=== PATIENT | male | born 1950 | race Caucasian/White ===

== ENCOUNTER 2016-09-27 21:15 | Inpatient (IN) | payer MEDICARE ==
[~2016-09-27] VITALS: Ht 179.1 cm; Wt 82.1 kg
--- NOTE | 2016-09-27 21:15 | NUR ---
66 YO MALE BB SELF. PT IS ALERT X 3, C/O GENERALIZED MALAISE ALL DAY. PT DENIES CP, N/V/DIARRHEA. PT AMBULATED TO ER BED 6 WITH SETADY GAIT, SKIN WARM AND DRY, RR EVEN AND UNLABORED. PT IS MOVING ALL EXTREMITIES FREELY, NO DEFICITS NOTED. PT GOWNED,PLACED ON DESIGN EDITOR. AWAITING ORDERS FROM PROVIDER, WILL CONITNUE TO MONITOR
--- NOTE | 2016-09-27 21:25 | NUR ---
18G RIGHT AC IV STARTED, BLOOD SAMPLE OBTAINED AND SENT TO LAB.
--- NOTE | 2016-09-27 21:30 | NUR ---
URINE SAMPLE OBTAINED AND SENT TO LAB
[2016-09-27] MEDS ORDERED: IV NS 0.9% 1,000 ML ONE (21:49)
[2016-09-27] MEDS ORDERED: IV SET PRIMARY 1 EA INFUS.SET MC ONE (21:49)
--- NOTE | 2016-09-27 22:00 | NUR ---
pt transported to ct via gurney by radiology team
[2016-09-27 22:02] LABS: BASOPHILS % (AUTO) 0.2 % (0.0-2.0); EOSINOPHILS % (AUTO) 0.1 % (0.0-6.0); HEMATOCRIT 45 % (39-51); HEMOGLOBIN 14.6 g/dL (13.5-17.5); LYMPHOCYTES # (AUTO) 1.4 /CMM (0.8-4.8); LYMPHOCYTES % (AUTO) 12.3 % (20.0-44.0); MEAN CORPUSCULAR HEMOGLOBIN 29 PG (26.0-33.0); MEAN CORPUSCULAR HGB CONC 32 g/dl (31.0-36.0); MEAN CORPUSCULAR VOLUME 89 fL (80-96); MONOCYTES # (AUTO) 0.5 /CMM (0.1-1.30); MONOCYTES % (AUTO) 4.2 % (2.0-12.0); NEUTROPHILS # (AUTO) 9.4 /CMM (1.8-8.9); NEUTROPHILS % (AUTO) 83.2 % (43.0-81.0); PLATELET COUNT (AUTO) 251 /CMM (150-450); RDW COEFFICIENT OF VARIATION 13.5 (11.5-15.0); RED BLOOD CELL COUNT(AUTO) 5.07 MIL/uL (4.5-6.0); WHITE BLOOD COUNT (AUTO) 11.3 K/uL (4.3-11.0)
[2016-09-27 22:11] LABS: CALCIUM, SERUM 8.5 mg/dL (8.5-10.1); CREATININE 0.7 mg/dL (0.6-1.3); POTASSIUM 3.8 mmol/L (3.5-5.1)
[2016-09-27 22:22] LABS: TROPONIN I 0.055 ng/mL (0.00-0.056)
[2016-09-27 22:23] LABS: PROTHROMBIN TIME 10.7 SECS (9.5-12.7)
[2016-09-28] VITALS (10 sets, daily range): BP systolic 106–147; BP diastolic 59–77
--- NOTE | 2016-09-28 00:01 | NUR ---
pt resting in er bed, nad noted, pt is on cardiac surgeon. will continue to monitor
--- NOTE | 2016-09-28 00:35 | NUR ---
report given to rn for tanner
--- NOTE | 2016-09-28 00:45 | NUR ---
RN OPEN NOTES RECEIVED PATIENT FROM ER VIA VERO WITH FRIEND AT BEDSIDE. A/O X4. NO SIGNS OF DISTRESS OR DISCOMFORT. BREATHING EVEN AND UNLABORED. IV ACCESS IN RAC, PATENT AND INTACT, NO SIGNS OF REDNESS OR INFILTRATION. ORIENTED PATIENT TO ROOM AND UNIT. ATTACHED TELE MONITORING WITH SR 70 NOTED. BED IN LOW LOCKED POSITION WITH SIDE RAILS X2. CALL LIGHT WITHIN REACH. WILL CONTINUE TO MONITOR.
[2016-09-28] MEDS ORDERED: IV NS 0.9% 1,000 ML IV PRN (01:15)
[2016-09-28] MEDS ORDERED: MAGNESIUM HYDROXIDE 30 ML UDC PO PRN (01:30)
[2016-09-28] MEDS ORDERED: CLONIDINE HCL 0.1 MG TABLET PO PRN (01:30)
[2016-09-28] MEDS ORDERED: ENOXAPARIN SODIUM 40 MG/0.4 ML DISP.SYRIN SQ SCH ×2 (01:30→21:00)
[2016-09-28] MEDS ORDERED: MAG HYDROX/AL HYDROX/SIMETH 30 ML UDC PO PRN (01:30)
[2016-09-28] MEDS ORDERED: ONDANSETRON HCL/PF 4 MG/2 ML VIAL IVP PRN (01:30)
[2016-09-28] MEDS ORDERED: ZOLPIDEM TARTRATE 5 MG TABLET PO PRN ×2 (01:30→21:00)
[2016-09-28] MEDS ORDERED: ENOXAPARIN SODIUM 40 MG/0.4 ML DISP.SYRIN SQ ONE (01:39)
[2016-09-28] MEDS ORDERED: IV NS 0.9% 1,000 ML ONE (01:50)
[2016-09-28] MEDS ORDERED: IV SET PRIMARY PUMP SET 1 EA INFUS.SET MC ONE (01:50)
[2016-09-28] MEDS ORDERED: ASPIRIN 81 MG TAB.CHEW PO SCH ×2 (03:00→09:00)
[2016-09-28] MEDS ORDERED: ASPIRIN 325 MG TABLET ONE (03:12)
--- NOTE | 2016-09-28 06:56 | NUR ---
RN CLOSING NOTES PATIENT AWAKE IN BED. A/O X4. NO SIGNS OF DISTRESS OR DISCOMFORT. BREATHING EVEN AND UNLABORED. IV ACCESS IN RAC, PATENT AND INTACT, NO SIGNS OF REDNESS OR INFILTRATION. ON TELE MONITORING WITH SB 59 NOTED. NO SIGNIFICANT CHANGES THROUGH THE NIGHT. ALL NEEDS MET. BED IN LOW LOCKED POSITION WITH SIDE RAILS X2. CALL LIGHT WITHIN REACH. WILL ENDORSE TO AM SHIFT FOR BRENDA.
--- NOTE | 2016-09-28 07:40 | NUR ---
CLIP WRAPPER OPENING NOTES RECEIVED PATIENT IN BED, AWAKE, HEAD OF BED ELEVATED, NO SOB, OR DISTRESS NOTED. . ON TELE MONITOR SINUS MEÑO HEART RATE OF 59. PATIENT ALERTED AND ORIENTED TIMES 4. VERBALLY RESPONSIVE AND ABLE TO LET US KNOW HIS NEEDS. IV INTACT AND PATENT. BED IS LOCKED ON THE LOWEST POSITION, CALL LIGHT WITHIN PATIENT REACH. SKIN IS INTACT. KEPT PATIENT CLEAN AND COMFORTABLE. WILL CONTINUE TO MONITOR ACCORDINGLY.
[2016-09-28 07:59] LABS: THYROID STIMULATING HORMONE 1.488 uIU/mL (0.358-3.74)
[2016-09-28 08:03] LABS: PHOSPHORUS 3.2 mg/dL (2.5-4.9)
[2016-09-28] MEDS: PANTOPRAZOLE 40 MG TABLET.DR PO SCH (08:47)
[2016-09-28] MEDS: LISINOPRIL (5MG) 5 MG TABLET PO SCH (08:47)
--- NOTE | 2016-09-28 12:03 | NUR ---
KNIFE EDGER NOTES DOCTOR AMEYA CAME SEEING AND EXAMINED THE PATIENT AND SHE ORDERED AMBIEN 5MG 1 TAB PO HS PRN. ALL ORDERS CARRIED OUT AND NOTED.
--- NOTE | 2016-09-28 12:04 | NUR ---
senior telecommunications specialist notes Dr. Cabrera came seen and examined the patient and ordered duplex carotid imaging. All orders carried out and noted. Will continue to monitor accordingly.
[2016-09-28] MEDS: ACETAMINOPHEN 325 MG TABLET PO PRN ×2 (19:14→19:53)
--- NOTE | 2016-09-28 19:15 | NUR ---
RN OPEN NOTES RECEIVED PATIENT AWAKE IN BED WITH FRIEND AT BEDSIDE. A/O X4. NO SIGNS OF DISTRESS OR DISCOMFORT. BREATHING EVEN AND UNLABORED. IV ACCESS IN RAC WITH NS INFUSING, PATENT AND INTACT, NO SIGNS OF REDNESS OR INFILTRATION. BED IN LOW LOCKED POSITION WITH SIDE RAILS X2. CALL LIGHT WITHIN REACH. WILL CONTINUE TO MONITOR.
--- NOTE | 2016-09-28 19:19 | NUR ---
MS RN CLOSING NOTES All needs provided, attended, and anticipated. Kept patient clean and comfortable in bed, call light within patient reach, will continue to monitor accordingly. Patient endorsed to next shift RN to continue care.
[2016-09-28 19:37] LABS: CANNABINOID, URINE NEGATIVE (NEGATIVE); PHENCYCLIDINE SCREEN,URINE NEGATIVE (NEGATIVE)
[2016-09-28 19:40] LABS: APPEARANCE,URINE CLEAR (CLEAR); BILIRUBIN,URINE NEGATIVE (NEGATIVE); BLOOD, URINE NEGATIVE Ery/uL (NEGATIVE); COLOR,URINE YELLOW (YELLOW); KETONES,URINE NEGATIVE (NEGATIVE); LEUKOCYTE ESTERASE ,URINE NEGATIVE (NEGATIVE); NITRITE, URINE NEGATIVE (NEGATIVE); PROTEIN,URINE NEGATIVE (NEGATIVE); UGLUCOSE NEGATIVE (NEGATIVE); UROBILINOGEN,URINE 0.2 EU/dL (0.2)
--- NOTE | 2016-09-28 20:00 | NUR ---
RN NOTES ADMINISTERED TYLENOL 650 MG FOR HEADACHE. WILL CONTINUE TO MONITOR.
--- NOTE | 2016-09-28 21:05 | NUR ---
RN NOTES ADMINISTERED AMBIEN 5MG PO ORDERED BY PATIENT REQUEST FOR INSOMNIA. WILL CONTINUE TO MONITOR.
--- NOTE | 2016-09-28 21:10 | NUR ---
RN NOTES PATIENT REFUSING IV FLUIDSX3. STATES HE IS DRINKING ENOUGH FLUIDS AND DOES NOT NEED THE IV FLUIDS. PATIENT EDUCATION REINFORCED. WILL CONTINUE TO MONITOR.
[2016-09-28] MEDS ORDERED: ATORVASTATIN 10 MG TABLET PO SCH (22:00)
[2016-09-28] MEDS ORDERED: SIMVASTATIN 20 MG TABLET PO SCH (22:00)
[2016-09-29 06:27] LABS: BASOPHILS % (AUTO) 0.2 % (0.0-2.0); EOSINOPHILS # (AUTO) 0.1 /CMM (0.0-0.7); EOSINOPHILS % (AUTO) 1.4 % (0.0-6.0); HEMATOCRIT 41 % (39-51); HEMOGLOBIN 13.4 g/dL (13.5-17.5); LYMPHOCYTES # (AUTO) 2.5 /CMM (0.8-4.8); LYMPHOCYTES % (AUTO) 39.9 % (20.0-44.0); MEAN CORPUSCULAR HEMOGLOBIN 30 PG (26.0-33.0); MEAN CORPUSCULAR HGB CONC 33 g/dl (31.0-36.0); MEAN CORPUSCULAR VOLUME 90 fL (80-96); MONOCYTES # (AUTO) 0.6 /CMM (0.1-1.30); MONOCYTES % (AUTO) 10.1 % (2.0-12.0); NEUTROPHILS # (AUTO) 3.1 /CMM (1.8-8.9); NEUTROPHILS % (AUTO) 48.4 % (43.0-81.0); PLATELET COUNT (AUTO) 207 /CMM (150-450); RDW COEFFICIENT OF VARIATION 13.5 (11.5-15.0); RED BLOOD CELL COUNT(AUTO) 4.51 MIL/uL (4.5-6.0); WHITE BLOOD COUNT (AUTO) 6.3 K/uL (4.3-11.0)
[2016-09-29 06:40] LABS: CALCIUM, SERUM 8.3 mg/dL (8.5-10.1); CREATININE 0.8 mg/dL (0.6-1.3); MAGNESIUM 2.2 mg/dL (1.8-2.4); PHOSPHORUS 3.7 mg/dL (2.5-4.9); POTASSIUM 3.8 mmol/L (3.5-5.1)
--- NOTE | 2016-09-29 06:55 | NUR ---
RN CLOSING NOTES PATIENT AWAKE IN BED. A/O X4. NO SIGNS OF DISTRESS OR DISCOMFORT. BREATHING EVEN AND UNLABORED. IV ACCESS IN RAC WITH NS INFUSING, PATENT AND INTACT, NO SIGNS OF REDNESS OR INFILTRATION. ALL NEEDS MET. NO SIGNIFICANT CHANGES THROUGH THE NIGHT. BED IN LOW LOCKED POSITION WITH SIDE RAILS X2. CALL LIGHT WITHIN REACH. WILL ENDORSE TO AM SHIFT FOR BRENDA.
--- NOTE | 2016-09-29 07:28 | NUR ---
IV IN RAC S/L-PATIENT REFUSED IV FLUIDS.
--- NOTE | 2016-09-29 07:30 | NUR ---
RN MS OPENING NOTES Received patient in bed, awake, head of bed elevated, no SOB or distress noted. A/O X 4, verbally responsive and able to make needs known. Patient has a headache 0/4 pain scale. IV is intact and patent without infiltration. Kept patient clean and comfortable in bed, call light within patient reach, will continue to monitor accordingly.
[2016-09-29 08:00] VITALS: BP_SYST 118; BP_SYST 145; BP_DIAS 70; BP_DIAS 90
[2016-09-29] MEDS: PANTOPRAZOLE 40 MG TABLET.DR PO SCH (08:14)
[2016-09-29] MEDS: ACETAMINOPHEN 325 MG TABLET PO PRN (08:15)
[2016-09-29] MEDS: LISINOPRIL (5MG) 5 MG TABLET PO SCH (08:15)
[2016-09-29] MEDS ORDERED: ASPIRIN 81 MG TAB.CHEW PO SCH (09:00)
[2016-09-29] MEDS ORDERED: ASPIRIN 325 MG TABLET PO SCH (09:00)
[2016-09-29 10:00] VITALS: BP 118/70
[2016-09-29] MEDS ORDERED: ATOR10TA PO (11:40)
[2016-09-29] MEDS ORDERED: ASPI81TA2 PO (11:40)
[2016-09-29] MEDS ORDERED: LISI5TAB45 PO (11:40)
--- NOTE | 2016-09-29 14:07 | NUR ---
RN MS DISCHARGE NOTES Discharge instructions given to patient and able to understand instructions and signed discharge paper and belongings list. Flu and pneumonia vaccines not given. Patient got the pneumonia vaccine on March 2016 and flu is out of season. Patient was taken to the lobby as patient's requested and he was accompanied with the nurse Ervin Barbosa in stable condition. Skin intact, heplock removed. No SOB, or distress noted. Vitals signs checked and recorded. MD and nurse aware.
== END 2016-09-29 12:30 | disposition home or self-care (01) | DRG 304 ==
LOC: ER 21:18 → TELE 09-28 00:33 → MED 09-28 16:39
PROVIDERS: ADMIT Nurse Practitioner Acute Care; ATTEND Nurse Practitioner Acute Care
DX: I10 Essential (primary) hypertension (principal); G92 Toxic encephalopathy; F41.9 Anxiety disorder, unspecified; Z87.891 Personal history of nicotine dependence; E78.5 Hyperlipidemia, unspecified; E11.9 Type 2 diabetes mellitus without complications; R94.31 Abnormal electrocardiogram [ECG] [EKG]; R42 Dizziness and giddiness
CPT/HCPCS: 36415; 70450-TC; 71010-TC; 80048-TC; 80061-TC; 80305; 81000-TC; 83735-TC; 83880; 84100-TC; 84443-TC; 84484-TC; 85025-TC; 85378-TC; 85730-TC; 87081-TC; 93307-TC; 93880-TC; 97001-TC; A4606; J1650; J7030; Z7610